=== PATIENT | female | born 1960 | race Caucasian/White ===

== ENCOUNTER 2018-03-20 13:24 | Outpatient (CLI) | payer BC ==
[2018-03-20 14:46] LABS: #Basophils 0.1 thou/uL (0.0-0.2); #Eosinphils 0.2 thou/uL (0.0-0.7); #Lymphocytes 4.6 thou/uL (1.20-3.40); #Monocytes 0.7 thou/uL (0.11-0.59); %Eosinophils 1.4 % (0.0-10.0); %Lymphocytes 39.8 % (21.0-51.0); %Monocytes 5.8 % (0.0-10.0); Hemoglobin 13.5 g/dL (12.0-16.0); Mean Corpuscular HGB CONC 33.1 g/dL (32.0-36.0); Mean Corpuscular Hemoglobin 28.5 pg (27.0-31.0); Mean Corpuscular Volume 86.2 fL (78.0-98.0); Mean Platelet Volume 8.2 fL (7.4-10.4); Platelet Count 417 thou/uL (130-400); RBC Distribution Width 12.4 % (11.5-14.5); Red Blood Cell (RBC) Count 4.75 mill/uL (4.20-5.40); White Blood Cell (WBC) Count 11.5 thou/uL (4.8-10.8)
[2018-03-20 14:57] LABS: Anion Gap 13 mmol/L (10-20); BUN (Urea Nitrogen) 12 mg/dL (9.8-20.1); Calc. Creatinine Clearance 0 mL/min (70-130); Calcium 9.9 mg/dL (7.8-10.44); Carbon Dioxide 26 mmol/L (22-29); Chloride 104 mmol/L (98-107); Estimated GFR-MDRD 72; Glucose 120 mg/dL (70-105); Potassium 3.9 mmol/L (3.5-5.1); Sodium 139 mmol/L (136-145)
--- NOTE | 2018-03-20 15:12 | RAD ---
PA AND LATERAL CHEST X-RAY: 03/20/2018 HISTORY: Preoperative evaluation. COMPARISON: None available. FINDINGS: The cardiac silhouette and pulmonary vasculature are within normal limits. The lungs are clear. Mil d degenerative changes are seen in the spine. Vascular calcification is seen in the aortic arch. IMPRESSION: No acute cardiopulmonary process. POS: ADAM
== END 2018-03-20 13:25 | disposition home or self-care (01) ==
LOC: LABBT 13:24
PROVIDERS: ATTEND Specialist
DX: Z01.818 Encounter for other preprocedural examination (principal); C50.919 Malignant neoplasm of unspecified site of unspecified female breast
CPT/HCPCS: 71046; 80048; 85025; 93005; 93010

== ENCOUNTER 2018-04-02 07:02 | Day surgery (SDC) | payer BC ==
[2018-03-20 13:47] VITALS: BMI 36.6
[2018-04-02] MEDS ORDERED: Lidocaine 2% Jelly 5 ML TUBE ONE (11:26)
[2018-04-02] MEDS ORDERED: Midazolam HCl 2 mg/2 ml Vial ONE (11:26)
[2018-04-02] MEDS ORDERED: Fentanyl 100 MCG/2 ML VIAL ONE (11:26)
[2018-04-02] MEDS ORDERED: Isosulfan Blue 50 MG/5 ML VIAL ONE (11:35)
[2018-04-02] MEDS ORDERED: Bupivacaine/Epinephrine 0.25% 30 ML VIAL ONE ×2 (11:35→13:51)
[2018-04-02] MEDS ORDERED: CEFAZOLIN/Water 2 GM/20 ML SYRINGE ONE (11:55)
[2018-04-02] MEDS ORDERED: Ketorolac Tromethamine 30 MG/ML VIAL ONE (11:56)
[2018-04-02] MEDS ORDERED: Lidocaine 1% PF 5 ML VIAL ONE (13:15)
[2018-04-02] MEDS ORDERED: PHENYLEPHRINE-NS 100 MCG/ML 10 ML SYRINGE ONE (13:15)
[2018-04-02] MEDS ORDERED: Ondansetron HCl/PF 4 MG/2 ML Vial ONE (13:15)
[2018-04-02] MEDS ORDERED: ePHEDrine/0.9% NaCl/PF SYRINGE 50 mg/10 ml ONE (13:15)
[2018-04-02] MEDS ORDERED: PROPOFOL 200 MG/20 ML VIAL ONE (13:15)
[2018-04-02] MEDS ORDERED: Dexamethasone 20 MG/5 ML VIAL ONE (13:15)
--- NOTE | 2018-04-02 13:30 | NM ---
LEFT BREAST LYMPHOSCINTIGRAPHY: DATE: 04/02/18. HISTORY: Malignant neoplasm of left female breast. RADIOPHARMACEUTICALS: 425 mCi Technetium 99m filtered sulfur colloid, intradermally and subcutaneously. FINDINGS: Technetium 99m filtered sulfur colloid was administered intradermally and subcutaneously in 4 separat e aliquots in a left periareolar location. Immediate imaging as well as 1-hour and 2-hour delayed im ages were obtained with AP and lateral projections performed. There is a focus of increased uptake s een overlying the left axilla and posterior to the left breast. This is only seen on the lateral pro jection and not well seen on the frontal projection. After a focal area of increased uptake was note d, the patient was transported to the operating room for surgery. The patient tolerated the procedur e well and without immediate complication. IMPRESSION: Focus of increased uptake seen posterior to left breast overlying the left axillary region only seen on the lateral projection likely representing sentinel lymph node. POS: DUYEN
--- NOTE | 2018-04-02 15:34 | MMO ---
LEFT BREAST SPECIMEN MAMMOGRAM: DATE: 04/02/18. HISTORY: The patient is post excision of mass in the left breast after needle and wire localization. FINDINGS/IMPRESSION: A single specimen is submitted for interpretation. The specimen contains the localization guidewire which traverses the spiculated mass with associated biopsy marker clip. These findings were discusse d with Dr. Aldana in the operating room on 04/02/18 at 1424 hours. CODE CR POS: DUYEN
[2018-04-02] MEDS ORDERED: HYDROcodone/Acetaminophen 5/325 mg Tablet ONE (15:35)
--- NOTE | 2018-04-02 15:39 | MMO ---
NEEDLE AND WIRE LOCALIZATION OF A MASS AND BIOPSY CLIP INNER LEFT BREAST 04/02/18 HISTORY: Left breast cancer. Needle and wire localization of the mass and biopsy marker clip left breast was r equested. TECHNIQUE: After informed consent was obtained, the mass in the left breast was localized in a mediolateral proj ection with grid in place. Area was meticulously prepped in the usual sterile fashion. Skin and subc utaneous tissues were infiltrated with buffered 1% lidocaine for local anesthesia. A 7.5 cm [place] loc alization needle and guide wire were placed. Imaging confirms placement of the needle overlying the m ass on the mediolateral projection. An opposing CC projection was then performed which demonstrated that the needle extended just laterally just beyond the level of the mass. The needle was slightly w ithdrawn and the wire was deployed. Final CC projection was obtained. An overlying dressing was applied. Patient tolerated the procedure well without immediate complication. Patient was transported to [facility] for lymphoscintigraphy. IMPRESSION: Technically successful needle and wire localization of a mass and biopsy marker clip in inner left br east. POS: DUYEN
--- NOTE | 2018-04-03 02:35 | OP ---
DATE OF OPERATION: 04/02/2018 PREOPERATIVE DIAGNOSIS: Left breast cancer (upper inner breast). POSTOPERATIVE DIAGNOSIS: Left breast cancer (upper inner breast). OPERATIONS PERFORMED: Left breast mammographic needle localized lumpectomy, left axillary sentinel l ymph node biopsy. SURGEON: Rai Aldana MD ANESTHESIA: General endotracheal. INDICATIONS: The patient is a 57-year-old white female. She was recently found to have an abnormali ty on mammogram, for which she underwent ultrasound-guided biopsy. This revealed invasive ductal car cinoma. After a thorough discussion of all options, she has elected to proceed with a lumpectomy and sentinel lymph node biopsy. As I was uncertain that I could adequately localize this with ultrasoun d, I decided to utilize mammographic needle localization for this lumpectomy. The patient also under went lymphoscintigraphy, which revealed a small amount of radioactivity within the axilla. DESCRIPTION OF OPERATION: Informed consent was obtained. The patient was taken to the operating willie m, where general endotracheal anesthesia was obtained with the patient in supine position. Her breas t was infiltrated with 3 mL of Lymphazurin in the left periareolar subdermal tissue, and the breast w as massaged for 5 minutes. The localizing needle was introduced to the medial aspect of the breast a nd passed in a medial to lateral fashion. This was a 7-cm needle and it was placed to the hub. The needle did pass immediately adjacent to the clip and the lesion. The breast, axilla, and localizing needle were all prepped with ChloraPrep and draped in sterile fash ion. Attention was turned first to the axilla. Local anesthetic was infiltrated and a transverse in ferior axillary incision was created and dissection was carried through skin, subcutaneous tissue, an d superficial axillary fascia. Neoprobe was utilized to identify areas of maximum radio intensity. I also identified areas of blue staining. I removed 2 areas of blue staining that I am not certain a ctually contained lymph nodes. There were 2 lymph nodes however that had both blue staining and radi oactivity. All tissue was dissected and investing lymphatics was divided between clamps and 3-0 silk ties. The wound was closed in layers with 3-0 and 4-0 Monocryl suture and additional local anesthet ic was infiltrated during closure. Attention was turned to the left breast. The tract of the needle was investigated with ultrasound. I was able to roberto on the skin, the distal aspect of the needle. The localizing clip was found to be at least 1 cm from the tip of the needle. I therefore planned to excise a lump of tissue extended b eyond the needle. I then created a counterincision over the distal portion of the needle. Dissection was carried about 1 cm deep into the breast and then from there, I dissected medially to identify the needle. I disse cted along the needle until I was about 3.5 cm from the tip. At that point, I removed the needle and then replaced the wire to the incision. The wire entered was grasped with Allis clamps. A wide lum p of tissue around the localizing wire was then dissected sharply. The specimen was removed intact i ncluding the tip of the wire. Meticulous hemostasis was obtained within the wound using electrocaute ry. Sutures were placed within the specimen for orientation and it was passed off the field. It was init ially sent for specimen mammography, which revealed that the specimen appeared to contain both the le lukas as well as the clip, and this appeared to be well within the center of the specimen. The wound was closed in layers with 3-0 and 4-0 Monocryl suture. Additional local anesthetic was inf iltrated. Dermabond was placed externally. This incision was at about the 10:30 radian of the left breast in the upper inner quadrant. There were no complications. Blood loss was negligible during the procedure. She was taken to the ecovery room in stable condition.
== END 2018-04-02 16:15 | disposition home or self-care (01) ==
LOC: SDC 07:02
PROVIDERS: ATTEND Specialist
DX: C50.212 Malignant neoplasm of upper-inner quadrant of left female breast (principal); F41.9 Anxiety disorder, unspecified; E11.9 Type 2 diabetes mellitus without complications; Z17.0 Estrogen receptor positive status [ER+]; Z79.84 Long term (current) use of oral hypoglycemic drugs; Z79.899 Other long term (current) drug therapy
CPT/HCPCS: 19281; 76098; 78195; 88305; 88307; 88331; 88334; 88342; A9541; J0131; J1100; J1885; J2001; J2250; J2405; J2704; J3010; Q9968

== ENCOUNTER 2018-08-12 15:53 | Outpatient (CLI) | payer BC ==
--- NOTE | 2018-08-12 17:28 | BD ---
DEXA BONE DENSITOMETRY: (Dual energy X-ray Absorptiometry) 08/12/18 HISTORY: 57-year-old postmenopausal white female for age-related osteoporosis screening examination. Ht. 64 inches. Wt. 215 lbs. Age of menopause: 49 years. COMPARISON: None available. FINDINGS: The bone mineral density (BMD) is given in grams per square centimeter (g/cm2): LUMBAR SPINE: BMD(g/cm2) T-score Z-score L1: 1.241 2.3 3.4 L2: 1.312 2.6 3.8 L3: 1.241 1.4 2.7 L4: 1.323 2.5 3.8 Total: 1.277 2.1 3.3 HIP: Femoral neck: 0.836 -0.1 1.1 Total: 1.261 2.6 3.4 IMPRESSION: 1) The mean bone mineral density of the lumbar spine is higher than normal. Fracture risk is not inc reased. 2) The bone mineral density of the femoral neck is normal. Fracture risk is not increased. ZACHARIAH Cortez POS: DUYEN
== END 2018-08-12 15:54 | disposition home or self-care (01) ==
LOC: BICMAMMO 15:53
PROVIDERS: ATTEND Internal Medicine Hematology & Oncology
DX: N95.9 Unspecified menopausal and perimenopausal disorder (principal); C50.919 Malignant neoplasm of unspecified site of unspecified female breast
CPT/HCPCS: 77080

== ENCOUNTER 2024-01-13 13:03 | Outpatient (CLI) | payer BC | END 2024-01-13 13:04 | disposition home or self-care (01) | LOC: BICMRI 13:03 | PROVIDERS: ATTEND Internal Medicine Rheumatology | DX: M25.551 Pain in right hip (principal); M25.552 Pain in left hip; R93.89 Abnormal findings on diagnostic imaging of other specified body structures | CPT/HCPCS: 72195 ==

== ENCOUNTER 2024-06-10 08:52 | Outpatient (CLI) | payer BC | END 2024-06-10 08:53 | disposition home or self-care (01) | LOC: CT 08:52 | PROVIDERS: ATTEND Internal Medicine Hematology & Oncology | DX: C79.51 Secondary malignant neoplasm of bone (principal); C50.212 Malignant neoplasm of upper-inner quadrant of left female breast; D70.8 Other neutropenia; D17.71 Benign lipomatous neoplasm of kidney; K76.89 Other specified diseases of liver | CPT/HCPCS: 71260; 74177; 78306; A9503 ==

== ENCOUNTER 2024-08-17 09:17 | Outpatient (CLI) | payer BC ==
[2024-08-17] MEDS ORDERED: Iopamidol 370 76% 100 ML VIAL ONE (11:31)
== END 2024-08-17 09:18 | disposition home or self-care (01) ==
LOC: CT 09:17
PROVIDERS: ATTEND Internal Medicine Hematology & Oncology
DX: C50.212 Malignant neoplasm of upper-inner quadrant of left female breast (principal); C79.51 Secondary malignant neoplasm of bone; D70.8 Other neutropenia
CPT/HCPCS: 71260; 74177; 78306; A9503; Q9967

== ENCOUNTER 2025-03-04 08:53 | Outpatient (CLI) | payer BC ==
[2025-03-04] MEDS ORDERED: Iopamidol 370 76% 100 ML VIAL ONE (15:32)
== END 2025-03-04 08:54 | disposition home or self-care (01) ==
LOC: CT 08:53
PROVIDERS: ATTEND Internal Medicine Hematology & Oncology
DX: C50.212 Malignant neoplasm of upper-inner quadrant of left female breast (principal); D70.8 Other neutropenia; C79.51 Secondary malignant neoplasm of bone
CPT/HCPCS: 71260; 74177; 78306; A9503